=== PATIENT | male | born 1955 | race African-American/Black ===

== ENCOUNTER 2025-06-18 08:48 | Outpatient (CLI) | payer OTHER | END 2025-06-18 08:49 | disposition home or self-care (01) | LOC: NM 08:48 | PROVIDERS: ATTEND Specialist | DX: Z47.1 Aftercare following joint replacement surgery (principal); T84.84XA Pain due to internal orthopedic prosthetic devices, implants and grafts, initial encounter; Z96.641 Presence of right artificial hip joint | CPT/HCPCS: 78315; A9503 ==